=== PATIENT | male | born 1985 | race Caucasian/White ===

== ENCOUNTER 2016-09-09 12:32 | Emergency (ER) | payer MEDICAID ==
[2016-09-09 12:48] VITALS: BP 166/108; PULSE 120; RESP 20; TEMP 98.3; O2SAT 96
--- NOTE | 2016-09-09 13:20 | UCPHY ---
H & P Time Seen by Provider: 09/09/16 12:38 Patient Type: New HPI/ROS: HPI Fever, cough, nasal congestion, sore throat. 22-year-old male by private vehicle. He complains of fever, cough, nasal congestion with clear rhinorrhea, sore throat, fatigue ongoing for 3 days now. He states he has had a flu shot. Cough described as dry and nonproductive. ROS: Constitutional: No fever, no chills. Fatigue. Eyes: No discharge. No changes in vision. ENT: As above. Respiratory: As above. No shortness of breath. Cardiac: No chest pain, no palpitations. Gastrointestinal: No abdominal pain, no vomiting, no diarrhea. Musculoskeletal: No back pain. No neck pain. No myalgias or arthralgias. Skin: No rashes. Neurological: No headache. No focal weakness or altered sensation. Past medical history: Anxiety. Social history: Here here by himself. 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 Physical Exam: General Appearance: Alert, no distress. This patient is responding to questions appropriately and in full sentences. This patient appears well- hydrated and well-nourished. No voice changes. Eyes: Pupils equal and round no pallor or injection. No lid edema, erythema or injection. ENT, Mouth: Mucous membranes are moist. The pharyngeal mildly erythematous. No edema or swelling. No asymmetry suggestive of abscess. No exudates. Respiratory: There are no retractions, lungs are clear to auscultation with good air movement bilaterally. Cardiovascular: Regular rate and rhythm. Mild tachycardia. No murmur. Neurological: Motor sensory function is grossly intact. Cranial nerves are normal. Gait is normal. Skin: Warm and dry, no rashes. Musculoskeletal: Neck is supple and nontender. No cervical, anterior, submental , submandibular lymphadenopathy. Extremities are symmetrical. All joints range without pain or impingement. Psychiatric: No agitation. No depression. Database: EKG: Imaging: Procedures: Emergency department course: Patient given 1 g of Tylenol and 800 mg of ibuprofen in the urgent care. Presentation is consistent with influenza. Explained to him we have had multiple positive test despite people being vaccinated. He feels comfortable going home and I feel he is safe for discharge. Supportive care, oral hydration , rest, antipyretics discussed. Follow-up reviewed. Return to Urgent Care/ emergency department precautions reviewed. All of his questions were answered. He was discharged in good condition. Differential Diagnosis: The differential diagnosis on this patient includes but is not limited to influenza, viral syndrome. Pneumonia, streptococcal pharyngitis, serious bacterial infection unlikely. This represents a partial list of diagnoses considered. These considerations are based on history, physical exam, past history and reassessment. Smoking Status: Heavy smoker Constitutional: Initial Vital Signs Temperature (C) 36.8 C 09/09/16 12:45 Heart Rate 120 H 09/09/16 12:45 Respiratory Rate 20 09/09/16 12:45 Blood Pressure 166/108 H 09/09/16 12:45 O2 Sat (%) 96 09/09/16 12:45 O2 Delivery Mode Room Air Allergies/Adverse Reactions: No Known Allergies Allergy (Verified 09/09/16 12:48) Home Medications: Medication Instructions Recorded Buspar (*) 02/25/16 Clonidine 02/25/16 MDM/Departure - Depart Disposition: Home, Routine, Self-Care Clinical Impression: Influenza Condition: Good Instructions: Influenza (ED) Additional Instructions: Read and follow provided instructions. Keep well hydrated and get plenty of rest. A good fluid to drink is Gatorade mixed with water in a 1-1 dilution. Follow-up with your primary care physician in 1-2 days for re-evaluation. Ibuprofen dosin mg every 6 hours with meals for the next 3 days only. Tylenol: 650 mg to 1 g every 6-8 hours for fever for the next 1-2 days. Do not take any other Tylenol containing medications. Return to the emergency department for vomiting, continued high fever, worsening cough, worsening sore throat or other serious concerns. Stand Alone Forms: School Excuse Referrals: MIKE MCMILLAN,. [Primary Care Provider] - As per Instructions - PQRS PQRS Measurement: Not applicable.
[2016-09-09] MEDS ORDERED: IBUPROFEN 800 MG TAB PO ONE (13:23)
[2016-09-09] MEDS ORDERED: ACETAMINOPHEN 325 MG TAB PO ONE (13:23)
[2016-09-09] MEDS ORDERED: IBUPROFEN 600 MG TAB PO ONE (13:42)
[2016-09-09] MEDS ORDERED: IBUPROFEN 200 MG TAB PO ONE (13:42)
== END 2016-09-09 13:52 | disposition home or self-care (01) ==
LOC: CED 12:32
DX: J11.1 Influenza due to unidentified influenza virus with other respiratory manifestations (principal)
CPT/HCPCS: 99203-PO; G0463-PO

== ENCOUNTER 2016-11-26 19:24 | Emergency (ER) | payer MEDICAID ==
[2016-11-26 19:33] VITALS: BP 151/96; PULSE 104; RESP 18; TEMP 97.9; O2SAT 94
--- NOTE | 2016-11-26 19:50 | UCPHY ---
H & P Time Seen by Provider: 11/26/16 19:32 Patient Type: Established HPI/ROS: 30-year-old male presents complaining of right knee pain, he states it has been bothering him for several years and when he was walking his dog today he twisted it. He denies falling he denies having swelling his primary complaint is that he has pain in his knee after twisting it while walking the dog. Review of systems General no fever no chills no weakness HEENT no eye pain no eye discharge. No eye redness, no sore throat Respiratory no cough, no shortness of breath Cardiac no chest pain, no peripheral edema GI no abdominal pain, no diarrhea, no constipation, no nausea, no vomiting no flank pain, no hematuria, no dysuria Musculoskeletal no myalgias, positive joint pain Heme no easy bruising, no easy bleeding Endo no polyuria, no polydipsia Skin no rashes, no pruritus Neuro no syncope, no dizziness, no headaches Psych is no suicidal ideation, no homicidal ideation Past Medical/Surgical History: GERD Alcohol abuse Social History: Positive alcohol abuse Unknown drug use Smoking Status: Current every day smoker Physical Exam: 30-year-old male alert, intoxicated, no acute distress nontoxic appearance afebrile Alert and oriented in no acute distress nontoxic appearance, afebrile Atraumatic normocephalic Neck no JVD Lungs clear to auscultation, no respiratory distress Heart regular rate and rhythm Extremities no cyanosis clubbing edema Right knee-negative anterior posterior drawer, no lateral or medial laxity, no palpable effusion Mild tenderness palpation at medial aspect of knee, no tibial plateau tenderness , full range of motion Popliteal, dorsalis pedis posterior tibialis pulses all intact No calf tenderness, no calf swelling Constitutional: Initial Vital Signs Temperature (C) 36.6 C 11/26/16 19:25 Heart Rate 104 H 11/26/16 19:25 Respiratory Rate 18 11/26/16 19:25 Blood Pressure 151/96 H 11/26/16 19:25 O2 Sat (%) 94 11/26/16 19:25 O2 Delivery Mode Room Air Allergies/Adverse Reactions: No Known Allergies Allergy (Verified 11/26/16 19:33) Home Medications: Medication Instructions Recorded Propranolol HCl 11/26/16 Protonix 11/26/16 busPIRone 04/26/17 Medical Decision Making ED Course/Re-evaluation: Patient seen and evaluated for right knee pain Patient refusing x-ray at this time. Impression Right knee sprain Plan Knee brace Follow up with primary care physician and/or Orthopedics as needed Rest ice compression elevation Departure - Departure Disposition: Home, Routine, Self-Care Clinical Impression: Strain of knee and leg, right Condition: Good Instructions: Knee Sprain (ED) Referrals: MIKE MCMILLAN,Zuleyka [Primary Care Provider] - As per Instructions Satnam Rolle MD [Medical Doctor] - As per Instructions - PQRS PQRS Measurement: na
== END 2016-11-26 20:21 | disposition home or self-care (01) ==
LOC: CED 19:24
DX: S83.91XA Sprain of unspecified site of right knee, initial encounter (principal); F10.229 Alcohol dependence with intoxication, unspecified; X58.XXXA Exposure to other specified factors, initial encounter
CPT/HCPCS: G0463-PO; L1830

== ENCOUNTER → 2017-03-02 | Day surgery (SDC) | payer MEDICAID ==
[~2017-03-02] MED LIST: ACETAMINOPHEN 500 MG TAB PO PRN; BUPIVACAINE/EPI 0.5% 30 ML SDV ONE; D5W LR 500 ML IV PRN; DEXAMETHASONE 4 MG/ML VIAL ONE; ENALAPRILAT DIHYDRATE 1.25 MG/ML VIAL IVP PRN; ENALAPRILAT DIHYDRATE 1.25 MG/ML VIAL ONE; HYDROCODONE/APAP 5/325 TAB ONE; HYDROCODONE/APAP 5/325 TAB PO PRN; HYDROmorphONE/DILAUDID 1 MG/ML SYR IVP PRN; KETOROLAC 30 MG/1 ML SDV ONE; LABETALOL HCL 5 MG/ML 20 ML MDV ONE; LABETALOL HCL 50 MG/10 ML SYR IVP PRN; LIDOCAINE 2% 5 ML SDV ONE; LR 1,000 ML IV ONE; MIDAZOLAM 2 MG/2 ML VIAL IVP ONE; MIDAZOLAM 2 MG/2 ML VIAL ONE; NALOXONE HCL 0.4 MG/ML INJ IVP PRN; ONDANSETRON 4 MG/2 ML VIAL IVP PRN; ONDANSETRON 4 MG/2 ML VIAL ONE; OXYCODONE/APAP 5/325 TAB PO PRN; PROMETHAZINE HCL 25 MG/ML INJ IVP PRN; PROPOFOL 200 MG/20 ML VIAL ONE; ROCURONIUM 50 MG/5 ML VIAL ONE; ceFAZolin 2 GM/DEXTROSE 100 ML IV ONE; fentaNYL 100 MCG/2 ML INJ IVP PRN; fentaNYL 100 MCG/2 ML INJ ONE; hydrALAZINE 20 MG/ML VIAL ONE
--- NOTE | 2017-03-02 06:38 | PDHPUP ---
History & Physical Update H&P update statement: This history and physical update is based on an assessment of the patient which was completed after admission or registration (within 24 hours), but prior to the surgery/procedure.
--- NOTE | 2017-03-02 14:02 | PDANEPAE ---
ANE Past Medical History - Cardiovascular History Hx Hypertension: Yes Hx Arrhythmias: No Hx Chest Pain: No Hx Coronary Artery / Peripheral Vascular Disease: No Hx CHF / Valvular Disease: No Hx Palpitations: No - Pulmonary History Hx COPD: No Hx Asthma/Reactive Airway Disease: No Hx Recent Upper Respiratory Infection: No Hx Oxygen in Use at Home: No Hx Sleep Apnea: No Sleep Apnea Screening Result - Last Documented: Negative Pulmonary History Comment: CHEST INFECTION 2015 HOSPITALIZED FOR 2 WEEKS - Neurologic History Hx Cerebrovascular Accident: No Hx Seizures: No Hx Dementia: No - Endocrine History Hx Diabetes: No Hypothyroid: No Hyperthyroid: No Obesity: no - Renal History Hx Renal Disorders: No Renal History Comment: 2016 had increased BUN/CR during chest infection. resolved afterwards - Liver History Hx Hepatic Disorders: No - Neurological & Psychiatric Hx Hx Neurological and Psychiatric Disorders: Yes Neurological / Psychiatric History Comment: anxiety/depression - Cancer History Hx Cancer: No - Congenital Disorder History Hx Congenital Disorders: No - GI History GERD: moderate Hx Gastrointestinal Disorders: Yes Gastrointestinal History Comment: REFLUX - Chronic Pain History Chronic Pain: Yes (RT KNEE) - Surgical History Prior Surgeries: NONE ANE Review of Systems - Exercise capacity METS (RN): 4 METS - Systems Neurological: Reports: anxiety ANE Patient History - Allergies Allergies/Adverse Reactions: No Known Allergies Allergy (Verified 11/26/16 19:33) - Home Medications Home Medications: Propranolol HCl 20 mg PO BID 11/26/16 [Last Taken 03/02/17 06:00] Protonix DAILY06 11/26/16 [Last Taken 03/02/17 06:00] busPIRone 10 mg TID 11/26/16 [Last Taken 03/01/17 20:00] Clonidine 0.125 mg PO BID 02/17/17 [Last Taken 03/02/17 06:00] EXCEDRIN EXTRA STRENGTH CAPLET TID 02/17/17 [Last Taken 02/23/17 09:50] - NPO status NPO Since - Liquids (Date): 03/02/17 NPO Since - Liquids (Time): 06:00 NPO Since - Solids (Date): 03/01/17 NPO Since - Solids (Time): 14:30 - Smoking Hx Smoking Status: Heavy smoker - Alcohol Use Alcohol Use: Occasionally - Family Anes Hx Family Anes Hx: neg - N/A Family Hx Anesthesia Complications: NEG ANE Labs/Vital Signs - Vital Signs Blood Pressure: 179/120 Heart Rate: 120 Respiratory Rate: 22 O2 Sat (%): 97 Height: 180.34 cm Weight: 95.254 kg ANE Physical Exam - Airway Neck exam: FROM Mallampati Score: Class 1 Mouth exam: normal dental/mouth exam - Pulmonary Pulmonary: no respiratory distress - Cardiovascular Cardiovascular: regular rate and rhythym, no murmur, rub, or gallop - ASA Status ASA Status: II ANE Anesthesia Plan Anesthesia Plan: general endotracheal anesthesia
[2017-03-02 16:36] VITALS: PULSE 119; TEMP 97.3
[2017-03-02 16:52] VITALS: BP 158/89; RESP 16; O2SAT 91
--- NOTE | 2017-03-02 16:54 | POSTANESTH ---
Post Anesthetic Evaluation Cardiovascular Status: Similar to Pre-Op Cond, Tx Hyper/Hypo-tension, Other, See Comment (poorly-controlled hypertension by patient) Respiratory Status: Normal, Stable Level of Consciousness/Mental Status: Can Participate in Eval Pain Control: Adequate, Prn Tx Ordered Nausea/Vomiting Control: Adequate, Prn Tx Ordered Complications Possibly Related to Anesthesia: None Noted
--- NOTE | 2017-03-08 20:11 | GOP ---
[f rep st] OPERATIVE REPORT DATE OF OPERATION: 03/02/2017 SURGEON: Satnam Rolle MD STITCH BONDING MACHINE OPERATOR: Kevin Rich, RN MDS, OUTREACH ANALYST, surgical instrument repair specialist, who was a medical necessity for the entir ety of the case. PREOPERATIVE DIAGNOSIS: Right knee ACL disruption and medial meniscus tear. POSTOPERATIVE DIAGNOSIS: Right knee ACL disruption and medial meniscus tear. PROCEDURE PERFORMED: 1. Right knee arthroscopy with anterior cruciate ligament reconstruction with hybrid tendon graft. 2. Partial medial meniscectomy. 3. Tendon graft harvest from a distance. FINDINGS: SPECIMENS: To pathology, none. DESCRIPTION OF PROCEDURE: The patient was identified in the preanesthesia area. The right knee was clearly demarcated as the operative site with an indelible marker. He was given 2 g of Ancef intra venously en route to the operative suite. In the OR, general endotracheal anesthesia was administer ed. Attention was turned to the right knee, which was sterilely prepped and draped in usual fashion . The right knee was immobilized in an arthroscopic leg patton and tourniquet applied to the proxim al side. An appropriate time-out procedure was carried out. The limb was then exsanguinated with a n Esmarch bandage, and the tourniquet inflated to 275 mmHg. Standard arthroscopic portal sites were created. Diagnostic arthroscopy ensued. The suprapatellar pouch was devoid of any loose or foreig n debris. The articular surface of the patella and trochlea were intact. The medial and lateral gu tters were free of any loose or foreign debris. The medial compartment demonstrated a large macerat ed medial meniscus tear which was displaced into the anterior notch. This was deemed irreparable an d removed. This was tapered to the remaining meniscus body. Approximately 50% of the total volume of the medial meniscus was withdrawn. There was a small, incarcerated fragment off the backside of the PCL which was likewise debrided. The articular surface of the femur and tibia demonstrated sarah ral areas of small grade 2 . The intercondylar notch was entered. The ACL was grossly to rn and this was debrided and a notchplasty was performed with an oscillating bur. All loose particu late debris was withdrawn. The lateral compartment was entered. The articular surface of the femur and tibia were intact. The lateral meniscus was stable, intact to gentle probing. Attention was t urned to the anterior aspect of the knee. An anteromedial incision was made, carried sharply throug h the skin and subcutaneous tissue, directly to the sartorius fascia. The sartorius fascia was open ed in the origin of its fibers and the semitendinosus was harvested, freed of the surrounding soft t issue, sutured with a FiberLoop suture and stripped in the proximal muscular belly. This was then c ombined with an allograft that was prepared on the back table in similar fashion, with suturing both the proximal and distal ends with the FiberLoop suture. Attention was then returned to the knee. Using an Arthrex guide, a femoral tunnel was created with a flip cutter with a 9 mm diameter. A tib ial tunnel was created with a guide over a guide pin and all particulate debris withdrawn. A suture was drawn through the femoral end of the tibial tunnel. The ACL tightrope button was then drawn th rough from the tibial to the femoral tunnel. The button was flipped on the lateral cortex. Tension was applied to the graft and the graft drawn into the femoral tunnel. Each graft was independently tensioned and a 10 x 28 mm BioComposite screw was placed. The graft was visualized in full flexion -extension, was appropriately tensioned, there was no impingement in full extension. Excess graft w as removed. All loose particulate debris evacuated free from the knee. The incisions were closed w ith 0 Vicryl, 2-0 Monocryl, and 4-0 nylon for the suture portals. A sterile dressing was applied, f ollowed by a Cryo/Cuff and brace. The patient was awakened, extubated, taken to the recovery room i n good, stable condition. OPERATIVE INDICATIONS: The patient is a 31-year-old gentleman who sustained an injury to his knee w ith a bucket-handle tear to his medial meniscus and complete disruption of his ACL. He has had pers istent interference with his activities of daily living. He has failed all attempts at conservative management. I have therefore recommended operative intervention with ACL reconstruction and partia l meniscectomy versus repair. He understood the risks, benefits, alternatives, and wished to procee d. Written consent was signed and placed in patient's chart. TOURNIQUET TIME: 50 minutes. COMPLICATIONS: None. IMPLANTS: As above. /[id number]/MODL
== END | disposition home or self-care (01) ==
LOC: FSGY 11:56
PROVIDERS: ATTEND Orthopaedic Surgery
PROC: 0LBQ0ZZ Excision of Right Knee Tendon, Open Approach (ICD-10-PCS; principal; 2017-03-02 13:45)
PROC: 0SBC4ZZ Excision of Right Knee Joint, Percutaneous Endoscopic Approach (ICD-10-PCS; principal; 2017-03-02 13:45)
PROC: 0MUN47Z Supplement Right Knee Bursa and Ligament with Autologous Tissue Substitute, Percutaneous Endoscopic Approach (ICD-10-PCS; principal; 2017-03-02 13:45)
DX: S83.411A Sprain of medial collateral ligament of right knee, initial encounter (principal); S83.511A Sprain of anterior cruciate ligament of right knee, initial encounter; Y93.67 Activity, basketball; I10 Essential (primary) hypertension; Z72.0 Tobacco use
CPT/HCPCS: C1713; C1762; J0171; J0360; J0690; J1100; J1885; J2250; J2405; J2704; J3010; J3490; L1832

== ENCOUNTER 2018-01-30 11:45 | Emergency (ER) | payer MEDICAID ==
[2018-01-30] MEDS ORDERED: ONDANSETRON 4 MG/2 ML VIAL ONE (12:01)
[2018-01-30] MEDS ORDERED: NS 1,000 ML IV ONE ×2 (12:02→13:05)
[2018-01-30] MEDS ORDERED: ONDANSETRON 4 MG/2 ML VIAL IVP ONE (12:02)
[2018-01-30] MEDS ORDERED: LORazepam 2 MG/ML INJ IVP ONE (12:34)
--- NOTE | 2018-01-30 13:01 | EDPHY ---
H & P Stated Complaint: Blood in urine today, shakiness and lower back pain x unknown. Time Seen by Provider: 01/30/18 11:48 HPI/ROS: CHIEF COMPLAINT: Dark urine, shaky HISTORY OF PRESENT ILLNESS: This is a 32-year-old male with history of alcohol abuse who presents with symptoms of alcohol withdrawal. He regularly drinks box of wine daily and consider this a decrease from the half quart of vodka that he used to drink (he cut back a few months ago). He is very interested in sobriety and was trying to quit prior to being admitted to [facility] on Thursday , day after tomorrow. He had one glass of wine this morning, about 5 hr ago. He is tremulous. For the past few days he has had vomiting and has had difficulty keeping food and liquid down. He denies abdominal pain. He does report bilateral flank pain that has been present for many months. Today noted that his urine was dark in color and he is concerned that he has blood in his urine. He has no history of DTs or seizures with alcohol cessation. He notes that he had a fall 2 nights ago while intoxicated. He did not lose consciousness. He denies headache, neck pain, midline back pain, numbness, or weakness. He notes multiple bruises as a result of this fall. He has a history of opiate abuse but states that he has not used opiates for quite some time. He took Suboxone in the past but does so no longer. REVIEW OF SYSTEMS: A ten point review of systems was performed and is negative with the exception of the items mentioned in the HPI. 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 He is here with his mother today. In addition to his alcohol use he smokes 1/2 to 1 pack of cigarettes daily. He denies the use of illicit drugs. General Appearance: Alert. Vital signs reviewed. Heart rate 107. Head: There is an abrasion that is scabbed on the vertex. Eyes: Pupils equal and round, no conjunctival injection, no discharge. Anicteric. ENT, Mouth: Mucous membranes are dry, no oropharyngeal erythema or edema. Scabbing across the bridge of his nose. No septal hematoma. No hemotympanum. Neck: No lymphadenopathy, supple. Nontender to palpation over the midline and no pain with active range of motion of his neck. Respiratory: Lungs are clear to auscultation; no wheezes, rales, or rhonchi. Cardiovascular: Tachycardic; no murmur, rub, or gallop. Gastrointestinal: Abdomen is soft and nontender, no masses or organomegaly, bowel sounds normal. Skin: Warm and dry, no rashes on exposed skin, normal color with scattered bruising. See extremity exam. Back: Nontender to palpation over the thoracolumbar spine. No CVAT. Extremities: No lower extremity edema, no calf tenderness or swelling. Purple bruising over the posterior left upper arm, both knees, lower legs. Neurological: Alert and oriented. Moving all four extremities easily and equally. NORMA. EOMI. Tongue midline. Facial expressions symmetric. Psychiatric: Normal affect. - Personal History Current Tetanus Diphtheria and Acellular Pertussis (TDAP): Yes Tetanus Vaccine Date: within 10 years - Medical/Surgical History Hx Asthma: No Hx Chronic Respiratory Disease: No Hx Diabetes: No Hx Cardiac Disease: No Hx Renal Disease: No Hx Cirrhosis: No Hx Alcoholism: Yes Hx HIV/AIDS: No Hx Splenectomy or Spleen Trauma: No Other PMH: GERD, HTN, Alcholism. Anxiety - Social History Smoking Status: Current every day smoker Constitutional: Initial Vital Signs Temperature (C) 37.2 C 01/30/18 11:49 Heart Rate 107 H 01/30/18 11:49 Respiratory Rate 20 01/30/18 11:49 Blood Pressure 149/110 H 01/30/18 11:49 O2 Sat (%) 93 01/30/18 11:49 O2 Delivery Mode Room Air Allergies/Adverse Reactions: No Known Allergies Allergy (Verified 01/30/18 11:52) Home Medications: Medication Instructions Recorded busPIRone 11/26/16 Clonidine 02/17/17 LORazepam [Ativan] 1 mg PO Q4 PRN #10 tablet 01/30/18 Omeprazole 01/30/18 Ondansetron Odt [Zofran Odt 4 mg 4 mg PO Q4 PRN #10 tab 01/30/18 (RX)] Medical Decision Making ED Course/Re-evaluation: 32-year-old male with history of alcohol abuse who presents with alcohol withdrawal. He has no history of DTs or seizures. Patient re-evaluated at 1:10 p.m.. He is resting comfortably. Blood pressure 124/62 and heart rate in the 70s. He is completing his 1st L of IV fluids. A formal urinalysis was performed and reviewed by me. No evidence of infection. I do not think that his flank pain is pyelonephritis. I am recommending that he have this followed up by [facility]. He is noted to have protein and blood in his urine. He is taking clonidine for blood pressure and was initially hypertensive in the emergency department. I have discussed this with him and have recommended that he follow up closely. He received total of 2 L of IV normal saline. He felt significantly better. He is here with his mother who will be with him throughout the rest of the weekend. He will be going to [facility] day after tomorrow. I feel that he has a good candidate for outpatient treatment for mild alcohol withdrawal. Because his liver functions are elevated I am prescribing a shorter acting benzodiazepine, lorazepam rather than Librium. I reviewed the use of this medication with the patient and his mother. She will be dispensing medication to him. They both understand that he should not combine alcohol with benzodiazepines. - Data Points Laboratory Results: 01/30/18 01/30/18 01/30/18 12:59 12:43 12:09 POC Sodium 133 mEq/L L mEq/L (135-145) POC Potassium 3.4 mEq/L mEq/L (3.3-5.0) POC Chloride 106.0 mEq/L mEq/L (97-110) POC Total CO2 20 mEq/L L mEq/L (22-31) POC BUN 8 mg/dL mg/dL (7-23) POC Creatinine 0.8 mg/dL mg/dL (0.7-1.3) POC Glucose 105 mg/dL H mg/dL (70-100) POC Calcium 9.2 mg/dL mg/dL (8.5-10.4) POC Total Bilirubin 1.3 mg/dL mg/dL (0.1-1.4) POC GGT 547 IU/L H IU/L (5-65) POC AST 327 IU/L H IU/L (17-59) POC ALT 177 IU/L H IU/L (21-72) POC Alk Phosphatase 87 IU/L IU/L (38-126) POC Total Protein 7.6 g/dL g/dL (6.3-8.2) POC Albumin 4.6 g/dL g/dL (3.5-5.0) POC Amylase 79 IU/L IU/L (30-110) Lipase 215 IU/L IU/L (23-300) Urine Color Urine Appearance Urine pH Ur Specific [place] Urine Protein Urine Ketones Urine Blood Urine Nitrate Urine Bilirubin Urine Urobilinogen Ur Leukocyte Esterase Urine RBC Urine WBC Ur Epithelial Cells Urine Mucus Urine Glucose 01/30/18 11:56 POC Sodium POC Potassium POC Chloride POC Total CO2 POC BUN POC Creatinine POC Glucose POC Calcium POC Total Bilirubin POC GGT POC AST POC ALT POC Alk Phosphatase POC Total Protein POC Albumin POC Amylase Lipase Urine Color IVON Urine Appearance CLEAR Urine pH 5.0 (5.0-7.5) Ur Specific [place] 1.031 H (1.002-1.030) Urine Protein 2+ H (NEGATIVE) Urine Ketones TRACE H (NEGATIVE) Urine Blood 1+ H (NEGATIVE) Urine Nitrate NEGATIVE (NEGATIVE) Urine Bilirubin NEGATIVE (NEGATIVE) Urine Urobilinogen 2.0 EU H EU (0.2-1.0) Ur Leukocyte Esterase NEGATIVE (NEGATIVE) Urine RBC 1-3 /hpf /hpf (0-3) Urine WBC 1-3 /hpf /hpf (0-3) Ur Epithelial Cells TRACE /lpf /lpf (NONE-1+) Urine Mucus 4+ /lpf H /lpf (NONE-1+) Urine Glucose NEGATIVE (NEGATIVE) Medications Given: Discontinued Medications Sodium Chloride (Ns) 1,000 mls @ 0 mls/hr IV ONCE ONE PRN Reason: Wide Open Stop: 01/30/18 12:03 Last Admin: 01/30/18 12:10 Dose: 1,000 mls Sodium Chloride (Ns) 1,000 mls @ 0 mls/hr IV EDNOW ONE; Wide Open PRN Reason: Protocol Stop: 01/30/18 13:06 Last Admin: 01/30/18 13:20 Dose: 1,000 mls Lorazepam (Ativan Injection) 1 mg IVP EDNOW ONE Stop: 01/30/18 12:35 Last Admin: 01/30/18 12:39 Dose: 1 mg Ondansetron HCl (Zofran) 4 mg IVP EDNOW ONE Stop: 01/30/18 12:03 Last Admin: 01/30/18 12:10 Dose: 4 mg Point of Care Test Results: CBC CBC Collection Date 01/30/18 CBC Collection Time 11:56 WBC 4.1 RBC 4.91 HGB 18.2 HCT 51.4 PLT 136 Neut # 2.5 Neut 62.7 LYMPH # 1.1 LYMPH 25.9 Other WBC # 0.5 Other WBC 11.4 MCV 104.7 Chemistry 01/30/18 01/30/18 12:59 12:43 POC Sodium 133 mEq/L L mEq/L (135-145) POC Potassium 3.4 mEq/L mEq/L (3.3-5.0) POC Chloride 106.0 mEq/L mEq/L (97-110) POC Total CO2 20 mEq/L L mEq/L (22-31) POC BUN 8 mg/dL mg/dL (7-23) POC Creatinine 0.8 mg/dL mg/dL (0.7-1.3) POC Glucose 105 mg/dL H mg/dL (70-100) POC Calcium 9.2 mg/dL mg/dL (8.5-10.4) POC Total Bilirubin 1.3 mg/dL mg/dL (0.1-1.4) POC GGT 547 IU/L H IU/L (5-65) POC AST 327 IU/L H IU/L (17-59) POC ALT 177 IU/L H IU/L (21-72) POC Alk Phosphatase 87 IU/L IU/L (38-126) POC Total Protein 7.6 g/dL g/dL (6.3-8.2) POC Albumin 4.6 g/dL g/dL (3.5-5.0) POC Amylase 79 IU/L IU/L (30-110) Urine Dip Collection Date 01/30/18 Collection Time 12:15 Specific [place] (1.002-1.030) 1.030 PH (5.0-7.5) 6.0 Leukocytes (Negative) Negative Nitrites (Negative) Positive Protein (Negative) 3+ Glucose (Negative) Negative Ketones (Negative) 1+ Urobilnogen (0.2-1.0 EU) 1.0 Bilirubin (Negative) Test Not Performed Blood (Negative) 2+ Departure - Departure Disposition: Home, Routine, Self-Care Clinical Impression: Alcohol withdrawal Qualifiers: Complication of substance-induced condition: uncomplicated Qualified Code(s): F10.230 - Alcohol dependence with withdrawal, uncomplicated Hypertension Qualifiers: Hypertension type: essential hypertension Qualified Code(s): I10 - Essential ( primary) hypertension Condition: Good Instructions: Alcohol Withdrawal (ED), Hypertension (ED) Additional Instructions: Your suffering from alcohol withdrawal today. I am prescribing Ativan for you to use over the weekend for symptoms of withdrawal. You can take one mg orally every four hours if needed. These include anxiety, shakiness, rapid heart rate , and high blood pressure. If you have any confusion or delirium or if you have a seizure you need to be re-evaluated immediately. The Ativan is a benzodiazepine. It can depress you're respiratory rate (your breathing). This medication is very dangerous if used along with alcohol. I would rather have you drink alcohol in between now and when you go to [facility] than have you use the Ativan along with alcohol. If you think that you are going to have a drink, you should not take the Ativan. If you are not able to control your symptoms with the Ativan you should return. Be sure that you make it to [facility] on Thursday as planned. You need to follow up at [facility] also. Your kidney function is normal today. Your urinalysis is abnormal with some blood and protein in your urine. This needs to be rechecked at [facility]. You had elevated blood pressure when you arrived. This could be partly due to alcohol withdrawal, but I am concerned that you need additional treatment for high blood pressure. . Your liver functions are abnormal, likely the result of your alcohol use. These should also be rechecked by your doctor at [facility]. Referrals: [facility],. [Primary Care Provider] - As per Instructions Prescriptions: LORazepam [Ativan] 1 mg PO Q4 PRN #10 tablet PRN Reason: alcohol withdrawal Ondansetron Odt [Zofran Odt 4 mg (RX)] 4 mg PO Q4 PRN #10 tab PRN Reason: nausea
[2018-01-30 14:45] VITALS: BP 121/73
== END 2018-01-30 14:44 | disposition home or self-care (01) ==
LOC: CED 11:45
DX: F10.230 Alcohol dependence with withdrawal, uncomplicated (principal); I10 Essential (primary) hypertension; E86.9 Volume depletion, unspecified; F17.200 Nicotine dependence, unspecified, uncomplicated
CPT/HCPCS: 80048-PO; 80076-PO; 82150-PO; 96374; J2060; J2405